=== PATIENT | male | born 1960 | race Caucasian/White ===

== ENCOUNTER 2016-09-24 21:16 | Emergency (ER) | payer OTHER ==
[~2016-09-24] VITALS: Ht 165.1 cm; Wt 89.0 kg
[2016-09-24 21:35] VITALS: BP 112/81
== END 2016-09-24 23:29 | disposition left against medical advice (07) ==
LOC: ER 21:18
DX: R07.89 Other chest pain (principal); F17.200 Nicotine dependence, unspecified, uncomplicated; Z98.890 Other specified postprocedural states
CPT/HCPCS: 99281; Z7610